=== PATIENT | female | born 1965 | race Caucasian/White ===

== ENCOUNTER 2020-11-13 06:43 | Day surgery (SDC) | payer OTHER ==
[2020-11-12 13:03] LABS: BASOPHILS % (AUTO) 0.5 % (0.0-5.0); EOSINOPHILS % (AUTO) 0.4 % (0.0-8.0); HEMATOCRIT 41.2 % (36-48); LYMPHOCYTES % (AUTO) 21.7 % (21.0-51.0); MEAN CORPUSCULAR HEMOGLOBIN 29.6 pg (27.0-33.0); MEAN CORPUSCULAR VOLUME 89.8 fL (79-99); MONOCYTES % (AUTO) 5.5 % (3.0-13.0); NEUTROPHILS % (AUTO) 71.5 % (40.0-77.0); PLATELET COUNT (AUTO) 221 K/uL (130-400); RED BLOOD CELL COUNT(AUTO) 4.59 MIL/uL (4.00-5.50); RED CELL DISTRIBUTION WIDTH 12.5 % (11.0-15.5); WHITE BLOOD COUNT (AUTO) 10.7 K/uL (4.8-10.8)
[2020-11-12 13:08] LABS: CREATININE 0.7 mg/dL (0.5-1.5); POTASSIUM 4.2 mmol/L (3.5-5.1)
[~2020-11-13] VITALS: Ht 179.1 cm; Wt 71.1 kg
[2020-11-13] VITALS (16 sets, daily range): BP systolic 108–119; BP diastolic 70–78
[2020-11-13] MEDS: CEFAZOLIN SODIUM 1 GM VIAL IVP SCH ×2 (06:00→16:05)
[~2020-11-13 06:43] MED LIST: APIX5TAB PO; ENOX40DI8 SQ; VERA180T60 PO
[2020-11-13] MEDS ORDERED: LACTATED RINGERS 1000ML 1,000 ML IV ONE (07:37)
[2020-11-13] MEDS ORDERED: LIDOCAINE/PRILOCAINE CREAM 5GM TUBE TP ONE (07:50)
[2020-11-13] MEDS ORDERED: HEPARIN 5,000 UNIT VIAL SQ SCH (10:00)
[2020-11-13] MEDS ORDERED: BUPIVACAINE/EPI/PF 0.25% 30ML VIAL IJ ONE (11:44)
[2020-11-13] MEDS ORDERED: GENTAMICIN SULFATE 80 MG/2 ML VIAL ONE (11:44)
[2020-11-13] MEDS ORDERED: CEFAZOLIN SODIUM 1 GM VIAL ONE (11:44)
[2020-11-13] MEDS ORDERED: SUCCINYLCHOLINE CHLORIDE 20 MG/ML 10 ML VIAL ONE (15:49)
[2020-11-13] MEDS ORDERED: MIDAZOLAM HCL 1 MG/ML 2ML VIAL ONE (15:49)
[2020-11-13] MEDS ORDERED: LIDOCAINE PF 100MG/5ML (2%) SYRINGE 5ML ONE (15:49)
[2020-11-13] MEDS ORDERED: PROPOFOL 10 MG/ML 20ML VIAL IV ONE ×2 (15:49→15:59)
[2020-11-13] MEDS ORDERED: FENTANYL CITRATE PF 50 MCG/1 ML 2ML VIAL ONE ×2 (15:55→17:17)
[2020-11-13] MEDS ORDERED: MEPERIDINE-PF 25 MG/ML SYG ONE (18:54)
== END 2020-11-13 20:45 | disposition home or self-care (01) ==
LOC: DAH 06:43
PROVIDERS: ATTEND Plastic Surgery
DX: L57.8 Other skin changes due to chronic exposure to nonionizing radiation (principal); Z20.822 Contact with and (suspected) exposure to COVID-19; R59.0 Localized enlarged lymph nodes; M19.90 Unspecified osteoarthritis, unspecified site; F41.9 Anxiety disorder, unspecified; E66.01 Morbid (severe) obesity due to excess calories; Z98.890 Other specified postprocedural states; Z79.899 Other long term (current) drug therapy; Z87.891 Personal history of nicotine dependence; Z72.89 Other problems related to lifestyle; Z68.42 Body mass index [BMI] 45.0-49.9, adult
CPT/HCPCS: 15002; 15100; 36415; 38525; 78195; 80048; 84703; 85025; 87635; A4215 ×2; A4221; A4222; A4223; A4606; A4649 ×3; A4663; A4930 ×2; A6209; A6223; A6260; A6446; A9272; A9541; C9803; J0330; J0690 ×2; J1580; J1644; J2001; J2175; J2250; J2704 ×2; J3010 ×2; J3490 ×2; J7030; J7120

== ENCOUNTER 2022-05-22 15:13 | Emergency (ER) | payer BC, OTHER ==
[~2022-05-22] VITALS: Ht 177.8 cm; Wt 69.9 kg
[2022-05-22 15:46] LABS: BASOPHILS % (AUTO) 0.6 % (0.0-5.0); EOSINOPHILS % (AUTO) 0.7 % (0.0-8.0); HEMATOCRIT 42.1 % (36-48); MEAN CORPUSCULAR HEMOGLOBIN 30.2 pg (27.0-33.0); MONOCYTES % (AUTO) 8.3 % (3.0-13.0); NEUTROPHILS % (AUTO) 59.1 % (40.0-77.0); PLATELET COUNT (AUTO) 206 K/uL (130-400); RED BLOOD CELL COUNT(AUTO) 4.73 MIL/uL (4.00-5.50); RED CELL DISTRIBUTION WIDTH 12.2 % (11.0-15.5); WHITE BLOOD COUNT (AUTO) 8.8 K/uL (4.8-10.8)
[2022-05-22 16:08] LABS: CREATININE 0.8 mg/dL (0.5-1.5); POTASSIUM 3.4 mmol/L (3.5-5.1)
[2022-05-22 16:14] LABS: ALBUMIN 3.9 g/dL (3.5-5.0)
[2022-05-22 16:17] LABS: APPEARANCE,URINE CLEAR (CLEAR); BILIRUBIN,URINE NEGATIVE (NEGATIVE); COLOR,URINE LIGHT-YELLOW (YELLOW); GLUCOSE, URINE (UA) NEGATIVE (NEGATIVE); KETONES,URINE NEGATIVE (NEGATIVE); LEUKOCYTE ESTERASE ,URINE NEGATIVE Leu/uL (NEGATIVE); NITRATE,URINE NEGATIVE (NEGATIVE); OCCULT BLOOD,URINE NEGATIVE (NEGATIVE); PROTEIN,URINE NEGATIVE (NEGATIVE); UROBILINOGEN,URINE 0.2 mg/dL (0.2-1.0)
[2022-05-22 16:20] LABS: BACTERIA,URINE RARE /HPF (None Seen); CALCIUM OXALATE CRYSTALS,UR RARE /LPF (None Seen); MUCUS,URINE RARE LPF (None Seen); RBC,URINE 0-1 /HPF (0-1); SQUAMOUS EPITHELIAL CELL,UR RARE /HPF (0-2)
[2022-05-22] MEDS ORDERED: ALBUTEROL 0.083% 2.5 MG/3 ML INH IH ONE (17:00)
[2022-05-22] MEDS ORDERED: IPRATROPIUM 0.5 MG/2.5 ML INH IH ONE (17:00)
[2022-05-22] MEDS ORDERED: BENZ-39 PO (18:21)
[2022-05-22 19:07] VITALS: BP 132/75
== END 2022-05-22 19:07 | disposition home or self-care (01) ==
LOC: EDH 15:13
DX: R06.00 Dyspnea, unspecified (principal); R05.9 Cough, unspecified; Z79.899 Other long term (current) drug therapy; Z91.010 Allergy to peanuts; Z91.040 Latex allergy status; Z20.822 Contact with and (suspected) exposure to COVID-19
CPT/HCPCS: 99284; 71045; 87635; 84484 ×2; 80053; 85025; 87804 ×2; 81001; 36415; 93005; 94640; C9803